=== PATIENT | male | born 1970 | race Hispanic/Latino ===

== ENCOUNTER 2018-09-28 16:52 | Emergency (ER) | payer MEDICARE ==
[2018-09-28 17:01] VITALS: BP 145/89; PULSE 85; TEMP 99.1; O2SAT 98
--- NOTE | 2018-09-28 17:49 | C.PDOC ---
History Of Present Illness 48 y/o male,w/PMhx of schizoaffective disorder, presents to the ER complaining of intermittent RUQ abdominal pain and liver "problem" for the past 6 months. Patient states that he saw his PMD, Dr.J Mena in his office today. Patient reports that Dr.J Mena referred him to the ER for possible jaundice. Denies having fever,chills, CP,SOB, nausea, and vomiting. Time Seen by Provider: 09/28/18 17:08 Chief Complaint (Nursing): Medical Clearance History Per: Patient History/Exam Limitations: no limitations Onset/Duration Of Symptoms: Days Current Symptoms Are (Timing): Still Present Severity: Moderate Past Medical History Reviewed: Historical Data, Nursing Documentation, Vital Signs Vital Signs: Last Vital Signs Temp 99.1 F 09/28/18 16:54 Pulse 85 09/28/18 16:54 Resp 18 09/28/18 16:54 BP 145/89 09/28/18 16:54 Pulse Ox 98 09/28/18 16:54 - Medical History PMH: No Chronic Diseases Family History: States: No Known Family Hx - Social History Hx Alcohol Use: No Hx Substance Use: No - Immunization History Hx Tetanus Toxoid Vaccination: Yes Hx Influenza Vaccination: Yes Hx Pneumococcal Vaccination: No Review Of Systems Except As Marked, All Systems Reviewed And Found Negative. Constitutional: Negative for: Fever, Chills Gastrointestinal: Positive for: Abdominal Pain. Negative for: Nausea, Vomiting, Diarrhea Physical Exam - Physical Exam Appears: Non-toxic, No Acute Distress Skin: Normal Color, Warm, Dry, No Jaundice Head: Atraumatic, Normacephalic Eye(s): bilateral: Normal Inspection, Other (no scleral icterus) Nose: Normal Oral Mucosa: Moist Neck: Supple Chest: Symmetrical Cardiovascular: Rhythm Regular Respiratory: Normal Breath Sounds, No Rales, No Rhonchi, No Wheezing Gastrointestinal/Abdominal: Normal Exam, Soft, No Tenderness, No Guarding, No Rebound Neurological/Psych: Oriented x3, Normal Speech ED Course And Treatment - Laboratory Results Result Diagrams: 09/28/18 17:54 09/28/18 17:54 O2 Sat by Pulse Oximetry: 98 (RA) Pulse Ox Interpretation: Normal - CT Scan/US US ABD Other Rad Studies (CT/US): Read By Radiologist, Radiology Report Reviewed CT/US Interpretation: Accession No. : [id number]. Patient Name / ID : SHERMAN Posey / [id number]. Exam Date : 09/28/2018 18:26:00 ( Approved ). Study Comment : Sex / Age : M / 48Y. Creator : Bailey Albert MD. Dictator : Bailey Albert MD. Math Interventionist : Lather Apprentice : Bailey Albert MD. Approver2 : Report Date : 09/28/2018 19:02:58. My Comment : . HISTORY: abd pain. COMPARISON: None available. TECHNIQUE: Sonographic evaluation of the abdomen. FINDINGS: Examination limited by bowel gas and habitus. LIVER: Measures 21.8 cm in sagittal dimension. Echogenic liver may be seen in setting of hepatic parenchymal disease or fatty infiltration. No focal hepatic mass identified. The main portal vein appears patent with normal directional flow. No intrahepatic bile duct dilatation. GALLBLADDER: Partially contracted gallbladder limits evaluation. No gallstones. No gallbladder wall thickening. Negative sonographic Jones's sign as assessed by the moid middle school teacher. COMMON BILE DUCT: Measures 3 mm. PANCREAS: Not well visualized. RIGHT KIDNEY: Measures 12.7 x 5.3 x 5.6 cm. No obstructing calculus or hydronephrosis identified. 1.5 x 1.1 x 1.2 cm complex appearing cyst within the mid to upper pole. LEFT KIDNEY: Measures 15.3 x 6.4 x 6.1 cm. No obstructing calculus or hydronephrosis identified. SPLEEN: Measures approximately 13.2 cm. 0.9 x 0.5 x 1.1 cm echogenic focus, possibly calcification. AORTA: Not well-visualized. IVC: Not well-visualized. OTHER FINDINGS: None. IMPRESSION: Limited examination as above. Hepatomegaly. Echogenic liver may be seen in setting of hepatic parenchymal disease or fatty infiltration. Splenomegaly. 0.9 x 0.5 x 1.1 cm echogenic splenic focus, possibly calcification. 1.5 x 1.1 x 1.2 cm mid to upper pole complex appearing probable cyst. Recommend further characterization with cross-sectional imaging if indicated. Contracted state of the gallbladder limits evaluation. Otherwise grossly unremarkable. Additional findings as above. Medical Decision Making Medical Decision Making: Plan: --Labs --UA --US-Abd. [address] Lobo Mena. Discussed results. Instructed for pt to follow up with him next week. Disposition Counseled Patient/Family Regarding: Studies Performed, Diagnosis, Need For Followup - Disposition Referrals: Aurea Mena MD [Staff Provider] - Disposition: HOME/ ROUTINE Disposition Time: 19:07 Condition: STABLE Additional Instructions: MIQUEL WHITAKER, thank you for letting us take care of you today. Your provider was Gillian Mccullough MD and you were treated for SENT BY PMD/EVAL. The emergency medical care you received today was directed at your acute symptoms. If you were prescribed any medication, please fill it and take as directed. It may take several days for your symptoms to resolve. Return to the Emergency Department if your symptoms worsen, do not improve, or if you have any other problems. Dr. Mena wants you to follow up in his office next week. Bring any paperwork you were given at discharge with you along with any medications you are taking to your follow up visit. Our treatment cannot replace ongoing medical care by a primary care provider outside of the emergency department. Thank you for allowing the [facility] team to be part of your care today. I Instructions: Acute Abdomen (Belly Pain), Adult (DC) Forms: [facility] [employer] [facility] (Latvian), General Discharge Instructions - POA Present On Arrival: None - Clinical Impression Clinical Impression: Abdominal pain - Scribe Statement The provider has reviewed the documentation as recorded by the Sisibe Daria Glover Provider Attestation: All medical record entries made by the Scribe were at my direction and personally dictated by me. I have reviewed the chart and agree that the record accurately reflects my personal performance of the history, physical exam, medical decision making, and the department course for this patient. I have also personally directed, reviewed, and agree with the discharge instructions and disposition.
[2018-09-28 17:58] LABS: BASO % 0.4 % (0.0-2.0); EOS # 0.1 K/uL (0.0-0.7); HEMOGLOBIN 15.4 g/dL (12.0-18.0); LYMPH # 1.5 K/uL (1.0-4.3); LYMPH % 29.4 % (20.0-40.0); MEAN CELL VOLUME 84.2 fL (80.0-94.0); MEAN CORPUSCULAR HEMOGLOBIN 29.4 pg (27.0-31.0); MEAN CORPUSCULAR HGB CONC 34.9 g/dL (33.0-37.0); MEAN PLATELET VOLUME 7.3 fL (7.2-11.7); MONO # 0.5 K/uL (0.0-0.8); MONO % 8.9 % (0.0-10.0); NEUT # 3.2 K/uL (1.8-7.0); NEUT % 60.3 % (50.0-75.0); RBC 5.24 Mil/uL (4.40-5.90); RED CELL DISTRIBUTION WIDTH 13.2 % (11.5-14.5); WHITE BLOOD COUNT 5.3 K/uL (4.8-10.8)
[2018-09-28 18:22] LABS: ALB/GLOB RATIO 1.8 (1.0-2.1); ALBUMIN 4.4 g/dL (3.5-5.0); ALT/SGPT 22 U/L (21-72); AST/SGOT 34 U/L (17-59); BLOOD UREA NITROGEN 11 mg/dL (9-20); CALCIUM 9.3 mg/dl (8.6-10.4); GFR NON-AFRICAN AMERICAN > 60; LIPASE 20 U/L (23-300)
[2018-09-28 18:27] LABS: URINE BILIRUBIN NEGATIVE (NEGATIVE); URINE BLOOD NEGATIVE (NEGATIVE); URINE CLARITY Clear (Clear); URINE COLOR Straw (YELLOW); URINE GLUCOSE (UA) NORMAL (Normal); URINE LEUKOCYTE ESTERASE NEG Leu/uL (Negative); URINE PROTEIN NEGATIVE (NEGATIVE); URINE UROBILINOGEN NORMAL mg/dL (0.2-1.0)
[2018-09-28 18:52] LABS: HEPATITIS B SURFACE AG Negative (NEGATIVE)
[2018-09-28 18:57] LABS: HEPATITIS A IGM NEGATIVE (NEGATIVE); HEPATITIS B CORE AB NEGATIVE (NEGATIVE)
--- NOTE | 2018-09-28 19:06 | US ---
HISTORY: abd pain COMPARISON: None available. TECHNIQUE: Sonographic evaluation of the abdomen. FINDINGS: Examination limited by bowel gas and habitus. LIVER: Measures 21.8 cm in sagittal dimension. Echogenic liver may be seen in setting of hepatic parenchymal disease or fatty infiltration. No focal hepatic mass identified. The main portal vein appears patent with normal directional flow. No intrahepatic bile duct dilatation. GALLBLADDER: Partially contracted gallbladder limits evaluation. No gallstones. No gallbladder wall thickening. Negative sonographic Jones's sign as assessed by the drafter detail. COMMON BILE DUCT: Measures 3 mm. PANCREAS: Not well visualized. RIGHT KIDNEY: Measures 12.7 x 5.3 x 5.6 cm. No obstructing calculus or hydronephrosis identified. 1.5 x 1.1 x 1.2 cm complex appearing cyst within the mid to upper pole. LEFT KIDNEY: Measures 15.3 x 6.4 x 6.1 cm. No obstructing calculus or hydronephrosis identified. SPLEEN: Measures approximately 13.2 cm. 0.9 x 0.5 x 1.1 cm echogenic focus, possibly calcification. AORTA: Not well-visualized. IVC: Not well-visualized. OTHER FINDINGS: None. IMPRESSION: Limited examination as above. Hepatomegaly. Echogenic liver may be seen in setting of hepatic parenchymal disease or fatty infiltration. Splenomegaly. 0.9 x 0.5 x 1.1 cm echogenic splenic focus, possibly calcification. 1.5 x 1.1 x 1.2 cm mid to upper pole complex appearing probable cyst. Recommend further characterization with cross-sectional imaging if indicated. Contracted state of the gallbladder limits evaluation. Otherwise grossly unremarkable. Additional findings as above.
[2018-09-28 19:09] LABS: HEPATITIS C ANTIBODY NEGATIVE (NEGATIVE)
[2018-09-28 19:36] VITALS: RESP 20
== END 2018-09-28 19:35 | disposition home or self-care (01) ==
LOC: C.ER 16:52
DX: R10.11 Right upper quadrant pain (principal)

== ENCOUNTER 2018-10-16 16:38 | Emergency (ER) | payer MEDICARE ==
[2018-10-16 16:58] VITALS: BP 138/88; PULSE 83; RESP 20; TEMP 99.3; O2SAT 97
--- NOTE | 2018-10-16 17:13 | C.PDOC ---
History Of Present Illness 48 year old male presents to the ED complaining of LUQ discomfort. Reports pain started last night but it has resolved now. States he was seen two weeks ago in the ED sent by his PMD for weakness and yellow appearance. The bloodwork did not show any signs of jaundice or Hepatitis. Liver functions and bilirubin tests were WNL. The US showed hepatosplenomegaly and small right kidney stone. 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 Patient is currently asymptomatic in the ED. Time Seen by Provider: 10/16/18 17:01 Chief Complaint (Nursing): Abdominal Pain History Per: Patient History/Exam Limitations: no limitations Onset/Duration Of Symptoms: Days Current Symptoms Are (Timing): Still Present Location Of Pain/Discomfort: LUQ Past Medical History Reviewed: Historical Data, Nursing Documentation, Vital Signs Vital Signs: Last Vital Signs Temp 99.3 F 10/16/18 16:56 Pulse 83 10/16/18 16:56 Resp 20 10/16/18 16:56 BP 138/88 10/16/18 16:56 Pulse Ox 97 10/16/18 16:56 - Medical History PMH: Diabetes Surgical History: No Surg Hx Family History: States: No Known Family Hx - Social History Hx Alcohol Use: No Hx Substance Use: No - Immunization History Hx Tetanus Toxoid Vaccination: Yes Hx Influenza Vaccination: Yes Hx Pneumococcal Vaccination: No Review Of Systems Except As Marked, All Systems Reviewed And Found Negative. Constitutional: Negative for: Fever, Chills Respiratory: Negative for: Cough, Shortness of Breath Gastrointestinal: Positive for: Abdominal Pain. Negative for: Nausea, Vomiting, Diarrhea Genitourinary: Negative for: Dysuria, Frequency, Hematuria Physical Exam - Physical Exam Appears: Non-toxic, No Acute Distress Skin: Warm, Dry, No Rash Head: Normacephalic Eye(s): bilateral: Normal Inspection Nose: Normal Oral Mucosa: Moist Neck: Supple Chest: Symmetrical Cardiovascular: Rhythm Regular Respiratory: Normal Breath Sounds, No Rales, No Rhonchi, No Wheezing Gastrointestinal/Abdominal: Soft, No Tenderness Neurological/Psych: Oriented x3, Normal Speech Gait: Steady ED Course And Treatment O2 Sat by Pulse Oximetry: 97 (RA) Pulse Ox Interpretation: Normal Progress Note: Old records reviewed - there are no records of spleen cyst. Patient reassured and given copy of records. Patient instructed to follow up with GI Specialist. Disposition - Disposition Disposition: HOME/ ROUTINE Disposition Time: 17:22 Condition: STABLE Additional Instructions: Follow up with PMD and Mechanical Service Technician within 2-3 days. Return to ED if feel worse. Forms: [facility] (Guamanian), General Discharge Instructions - Clinical Impression Clinical Impression: Abdominal pain - PA / CHILD PROTECTIVE SERVICES SOCIAL WORKER / Resident Statement MD/DO has reviewed & agrees with the documentation as recorded. - Scribe Statement The provider has reviewed the documentation as recorded by the Scribpastor Daniel All medical record entries made by the Jose Angel were at my direction and personally dictated by me. I have reviewed the chart and agree that the record accurately reflects my personal performance of the history, physical exam, medical decision making, and the department course for this patient. I have also personally directed, reviewed, and agree with the discharge instructions and disposition.
== END 2018-10-16 17:32 | disposition home or self-care (01) ==
LOC: C.ER 16:38
DX: R10.12 Left upper quadrant pain (principal)